=== PATIENT | male | born 1950 | race Caucasian/White ===

== ENCOUNTER → 2018-09-15 12:20 | Outpatient (CLI) | payer MEDICARE, OTHER, SELFPAY ==
--- NOTE | 2018-09-15 12:48 | DI.RAD.S_ITS ---
PROCEDURE: XR FOOT RT MIN 3V INDICATIONS: pain on outside R foot to pinky toe TECHNIQUE: 3 views of the foot were acquired. COMPARISON: None. FINDINGS: Bones: No fractures or dislocations. No suspicious bony lesions. Osteoarthritis is present moderate in severity at the first MTP joint and the interphalangeal joint of the first ray. Soft tissues: No tibiotalar joint effusion. Achilles tendon appears normal. IMPRESSION: No acute trauma found. Degenerative osteoarthritis as discussed. Incidental mode is made of a plantar fascia insertion spur that is small at the plantar fascia insertion on the posterior calcaneus. Dictated by: Bi Mcginnis M.D. on 09/15/2018 at 13:05 Approved by: Bi Mcginnis M.D. on 09/15/2018 at 13:06
== END ==
PROVIDERS: Family Provider Podiatrist; PCP Internal Medicine; Visit Provider Physician Assistant
DX: M79.671 Pain in right foot (principal); M19.071 Primary osteoarthritis, right ankle and foot; M77.31 Calcaneal spur, right foot
CPT/HCPCS: 73630

== ENCOUNTER → 2018-12-29 13:11 | Outpatient (CLI) | payer MEDICARE, OTHER, SELFPAY ==
--- NOTE | 2019-01-02 12:33 | PM.TREADMILL ---
Cardiac Stress Test Report Referral & Results Date Patient Seen: 01/02/19 Requesting provider: Michele Laura Indication: Coronary disease Rest EC% atrial and ventricular paced Procedure Note: After both written and verbal informed consent the patient had an IV started by the diagnostic imaging RN, and then was hooked up to the treadmill monitoring system. The Lexiscan material, and then the Cardiolite tracer, were administered sequentially. An additional 3 min was spent monitoring the patient while supine on the gurney. The patient had a normal response to all infused materials. Impression: Normal response as above Please see perfusion imaging report for details regarding possible ischemia Please note: Actual ECG tracings can be found in the PACS system.
--- NOTE | 2019-01-04 11:04 | DI.NM.S_ITS ---
DATE OF SERVICE: 12/29/2018 PROCEDURE: Pharmacological perfusion study. INDICATIONS: Exertional shortness of breath with history of CAD, status post drug-coated stent placement to the LAD and circumflex in 2008 as a well as again in circumflex in 2014; advanced heart block, status post dual-chamber pacemaker; history of PE. RADIOPHARMACEUTICAL: 26.0 mCi technetium-99m Myoview IV was injected at stress and 25.3 mCi technetium-99m Myoview IV was injected at rest. CARDIAC STRESS: Patient underwent IV Lexiscan perfusion study under the supervision of an attending staff using standard IV Lexiscan as per protocol. Patient remained hemodynamically stable. Baseline rhythm was AV sequential- paced rhythm. Stress EKG did not reveal any convincing new ischemic changes. There were no new significant arrhythmias. RAW DATA: There was increased subdiaphragmatic activity. GATED STUDY: Stress LV ejection fraction 57% without any obvious wall motion abnormalities. TID ratio is 1.26. It is a pharmacological perfusion study. Resting end-diastolic volume is 157 mL. Lung/heart ratio is 0.37,which is within normal limits. MYOCARDIAL PERFUSION SCAN: Stress supine and resting supine images revealed small-sized mildly decreased perfusion of inferior wall and distal inferolateral wall which got significantly improved during prone images. However, patient remained to have mildly decreased perfusion of distal inferolateral wall in prone images. There is no reversible ischemia. CONCLUSION: No obvious reversible ischemia. Stress supine and resting supine images revealed mildly decreased perfusion of inferior wall and distal inferolateral wall which got significantly improved during prone images with some persistent distal inferolateral defect. Most likely we are dealing with diaphragmatic tissue attenuation artifact. However, one cannot rule out the possibility of small nontransmural distal inferolateral infarction. Patient has history of percutaneous coronary intervention (PCI) to circumflex and left anterior descending (LAD) in the past. Overall, left ventricular (LV) function is preserved. This is a low-risk myocardial perfusion study. Niko Epps - SHIRA/jane/ doc#: [id number]/job#: [id number] dd: 01/02/2019 16:38:00 dt: 01/02/2019 17:23:00 DICTATING MD/COPIES TO: Akin Goodman MD COPIES MNE: SOFIYA
== END ==
PROVIDERS: Family Provider Podiatrist; PCP Internal Medicine; Visit Provider Internal Medicine Cardiovascular Disease
DX: I25.10 Atherosclerotic heart disease of native coronary artery without angina pectoris (principal); Z53.9 Procedure and treatment not carried out, unspecified reason
CPT/HCPCS: 78452; 93016; 93017; 93018; A9502; J2785

== ENCOUNTER → 2019-03-28 11:44 | Outpatient (CLI) | payer MEDICARE, OTHER, SELFPAY ==
--- NOTE | 2019-03-28 | DI.US.S_ITS ---
PROCEDURE: US CAROTID DOPPLER BI INDICATIONS: BILATERAL CCA STENTS TECHNIQUE: Color and pulse Doppler interrogation was performed of both carotid systems, with image documentation and velocity measurements. COMPARISON: None. FINDINGS: Stenosis calculations are based on SRU (Society of Radiologists in Ultrasound) criteria. Right side: Brachial blood pressure: 124/75 mm Hg. Common carotid artery peak systolic velocity: 101 cm/sec. Internal carotid artery peak systolic velocity: 113 cm/sec. Internal carotid artery end diastolic velocity: 17 cm/sec. External carotid artery peak systolic velocity: 158 cm/sec. ICA/CCA peak systolic ratio: 1.1. Jeong scale imaging description: Carotid stent present and moderate scattered plaque. Percent internal carotid artery stenosis: Less than 50% stenosis. Vertebral artery: Flow direction is antegrade. Left side: Brachial blood pressure: 113/77 mm Hg. Common carotid artery peak systolic velocity: 99 cm/sec. Internal carotid artery peak systolic velocity: 90 cm/sec. Internal carotid artery end diastolic velocity: 34 cm/sec. External carotid artery peak systolic velocity: Occluded. ICA/CCA peak systolic ratio: 19. Jeong scale imaging description: Carotid stent present moderate scattered plaque. Percent internal carotid artery stenosis: Less than 50%. Vertebral artery: Flow direction is antegrade. IMPRESSION: Less than 50% bilateral internal carotid artery stenosis. Dictated by: Salty Burleson RRA Interpreted: Wendie Chappell MD on 03/28/2019 at 13:20 Approved by: Wendie Chappell MD, PhD on 03/28/2019 at 14:59
== END ==
PROVIDERS: PCP Internal Medicine; Visit Provider Internal Medicine Cardiovascular Disease
DX: I65.23 Occlusion and stenosis of bilateral carotid arteries (principal); Z98.890 Other specified postprocedural states
CPT/HCPCS: 93880

== ENCOUNTER → 2023-05-24 09:04 | Outpatient (CLI) | payer MEDICARE, OTHER, SELFPAY ==
[2023-05-24 21:25] LABS: Hemoglobin A1C% w Est Avg Glu 6.3 % (4.0-6.0)
[2023-05-24 21:27] LABS: Alanine Aminotransferase 11 IU/L (<50); Albumin Globulin Ratio 1.5 (1.0-2.8); Alkaline Phosphatase 87 U/L (38-126); Aspartate Aminotransferase 21 IU/L (17-59); Bilirubin Total 0.6 mg/dL (0.2-1.3); Blood Urea Nitrogen 8 mg/dL (9-20); Calcium 9.2 mg/dL (8.4-10.2); Carbon Dioxide 27 mmol/L (22-32); Chloride 96 mmol/L (98-107); Cholesterol 125 mg/dL (140-199); Estimated Glomerular Filt Rate > 60 mL/min (>60); Globulin 2.7 g/dL (1.7-4.1); Glucose 100 mg/dL (80-110); HDL Cholesterol 56 mg/dL (40-60); HEMOLYSIS < 15 (0-50); LDL Cholesterol Calculated 50 mg/dL (<100); Potassium 4.1 mmol/L (3.4-5.1); Sodium 132 mmol/L (137-145); Total Protein 6.7 g/dL (6.3-8.2); Triglycerides 93 mg/dL (35-150)
[2023-05-24 21:43] LABS: Free T3, Triiodothyronine Free 3.33 pg/mL (2.77-5.27)
[2023-05-24 21:56] LABS: TSH w/ Reflex to FT4 0.55 uIU/mL (0.47-4.68)
== END ==
PROVIDERS: PCP Physician Assistant Medical; Visit Provider Physician Assistant Medical
DX: Z13.6 Encounter for screening for cardiovascular disorders (principal); E03.9 Hypothyroidism, unspecified; E11.9 Type 2 diabetes mellitus without complications; E78.00 Pure hypercholesterolemia, unspecified; I25.10 Atherosclerotic heart disease of native coronary artery without angina pectoris
CPT/HCPCS: 80053; 80061; 83036; 84443; 84481

== ENCOUNTER → 2023-08-11 14:29 | Outpatient (CLI) | payer MEDICARE, SELFPAY ==
--- NOTE | 2023-08-11 14:33 | DI.US.S_ITS ---
PROCEDURE: US RENAL COMPLETE INDICATIONS: Evaluate right kidney. Abnormality seen at last vagus urology. TECHNIQUE: Real-time scanning was performed of the kidneys and bladder, with image documentation. COMPARISON: Not available at the time of dictation. FINDINGS: Kidneys: Kidneys are normal in size. Right kidney measures 11.6 cm long; left kidney measures 12.1 cm long. Right renal parapelvic anechoic structures with posterior sound enhancement, no internal echogenicity nor thick muñoz most likely represent simple parapelvic cysts, measuring 6.0 x 4.9 x 3.6 centimeters and 2.0 x 1.8 x 1.8 centimeters respectively. Renal cortical echotexture is otherwise normal. No hydronephrosis or nephrolithiasis. No suspicious solid mass lesions. Bladder: Pre-void bladder volume is it 116 mL. Post-void residual is 82 mL. Pre-void images demonstrate no intraluminal masses or stones. Right ureteral jet is not seen. Left ureteral jet is visualized. (Of note, ureteral jets may not be detectable in up to 25% of cases due to insufficient differences in specific gravity between ureteral and bladder urine). Miscellaneous: No free pelvic fluid. IMPRESSION: Right parapelvic cysts. If strong clinical suspicion remains for an alternate diagnosis, than CT urogram/CT KUB may provide additional diagnostic benefit. Dictated by: Juan José Conti M.D. on 08/12/2023 at 16:02 Approved by: Juan José Conti M.D. on 08/12/2023 at 16:13
== END ==
LOC: US 14:31
PROVIDERS: PCP Physician Assistant Medical; Referring Provider Physician Assistant Medical; Visit Provider Physician Assistant Medical
DX: N18.9 Chronic kidney disease, unspecified (principal); N28.1 Cyst of kidney, acquired
CPT/HCPCS: 76770

== ENCOUNTER → 2023-11-17 10:27 | Outpatient (CLI) | payer MEDICARE, SELFPAY ==
[2023-11-17 20:29] LABS: Add Manual Diff / Slide Review NO; Basophils Absolute Auto 100 /uL (0-100); Basophils Percent Auto 0.8 % (0-2); Eosinophils Absolute Auto 300 /uL (0-450); Eosinophils Percent Auto 5.2 % (2-4); Hematocrit 39.4 % (41-53); Hemoglobin 13.4 g/dL (13.5-17.5); Lymphocytes Absolute Auto 1000 /uL (1100-4500); Lymphocytes Percent Auto 15.1 % (25-40); Mean Corpuscular HGB Conc 33.9 % (30-36); Mean Corpuscular Hemoglobin 30.6 PG (26-34); Mean Corpuscular Volume 90.3 fL (80-100); Monocytes Absolute Auto 600 /uL (0-900); Monocytes Percent Auto 9.5 % (3-14); Neutrophils Absolute Auto 4600 /uL (1500-7000); Neutrophils Percent Auto 69.4 % (50-75); Platelet Count 233 X10^3/uL (150-400); Red Blood Cell Count 4.37 X10^6/uL (4.5-5.9); Red Cell Distribution Width 13.9 % (11.6-14.8); White Blood Cell Count 6.6 X10^3/uL (4.5-11.0)
[2023-11-17 20:33] LABS: Alanine Aminotransferase 11 IU/L (<50); Albumin Globulin Ratio 1.5 (1.0-2.8); Alkaline Phosphatase 83 U/L (38-126); Aspartate Aminotransferase 19 IU/L (17-59); BUN Creatinine Ratio 10.5 (6-22); Bilirubin Total 0.7 mg/dL (0.2-1.3); Blood Urea Nitrogen 10 mg/dL (9-20); Calcium 9.2 mg/dL (8.4-10.2); Carbon Dioxide 26 mmol/L (22-32); Chloride 96 mmol/L (98-107); Estimated Glomerular Filt Rate > 60 mL/min (>60); Globulin 2.7 g/dL (1.7-4.1); Glucose 101 mg/dL (80-110); HEMOLYSIS < 15 (0-50); Potassium 4.7 mmol/L (3.4-5.1); Sodium 129 mmol/L (137-145); Total Protein 6.7 g/dL (6.3-8.2); Uric Acid 3.8 mg/dL (3.5-8.5)
[2023-11-17 20:34] LABS: Hemoglobin A1C% w Est Avg Glu 5.9 % (4.0-6.0)
[2023-11-17 20:43] LABS: Creatinine Urine Random 235.35 mg/dL
[2023-11-17 21:00] LABS: Microalbumin Urine Random 5.7 mg/dL (0-1.6)
[2023-11-17 21:03] LABS: TSH w/ Reflex to FT4 < 0.02 uIU/mL (0.47-4.68)
[2023-11-17 21:42] LABS: Free T4, Direct Thyroxine 2.39 ng/dL (0.78-2.19)
== END ==
PROVIDERS: PCP Physician Assistant Medical; Referring Provider Physician Assistant Medical; Visit Provider Physician Assistant Medical
DX: N18.9 Chronic kidney disease, unspecified (principal); E11.9 Type 2 diabetes mellitus without complications; E03.9 Hypothyroidism, unspecified; I10 Essential (primary) hypertension; H93.19 Tinnitus, unspecified ear
CPT/HCPCS: 80053; 82043; 82570; 83036; 84439; 84443; 84550; 85025

== ENCOUNTER → 2024-01-10 10:27 | Outpatient (CLI) | payer MEDICARE, SELFPAY ==
[2024-01-10 19:26] LABS: Hematocrit 39.7 % (41-53); Hemoglobin 13.5 g/dL (13.5-17.5)
[2024-01-10 19:45] LABS: BUN Creatinine Ratio 15.6 (6-22); Blood Urea Nitrogen 12 mg/dL (9-20); Carbon Dioxide 25 mmol/L (22-32); Chloride 92 mmol/L (98-107); Estimated Glomerular Filt Rate > 60 mL/min (>60); Glucose 93 mg/dL (80-110); HEMOLYSIS < 15 (0-50); Potassium 4.4 mmol/L (3.4-5.1); Sodium 124 mmol/L (137-145)
[2024-01-10 19:53] LABS: Creatinine Urine Random 138.07 mg/dL; Protein (Total) Urine Random < 5 mg/dL (0-12)
== END ==
PROVIDERS: PCP Family Medicine; Visit Provider Student in an Organized Health Care Education/Training Program
DX: D70.9 Neutropenia, unspecified (principal); N05.9 Unspecified nephritic syndrome with unspecified morphologic changes; D63.1 Anemia in chronic kidney disease; R80.9 Proteinuria, unspecified
CPT/HCPCS: 80048; 82570; 84156; 85014; 85018

== ENCOUNTER → 2024-02-21 13:55 | Outpatient (CLI) | payer MEDICARE, SELFPAY ==
[2024-02-21 19:14] LABS: Hemoglobin 13.4 g/dL (13.5-17.5)
[2024-02-21 19:22] LABS: HEMOLYSIS < 15 (0-50); Iron 85 ug/dL (49-181)
[2024-02-21 19:32] LABS: Appearance Urine UA CLEAR; Bilirubin Urine UA NEGATIVE (NEGATIVE); Color Urine UA YELLOW; Glucose Urine UA NEGATIVE (Negative); Ketones Urine UA TRACE (NEGATIVE); Leukocyte Esterase Urine UA NEGATIVE (NEGATIVE); Nitrite Urine UA NEGATIVE (Negative); Occult Blood Urine UA NEGATIVE (Negative); Protein Urine UA NEGATIVE (Negative); Specific Gravity Urine UA 1.015 (1.000-1.035); pH Urine UA 6.5 (4.5-8.0)
[2024-02-21 19:34] LABS: Percent Iron Saturation 33 % (20-50); Total Iron Binding Capacity 261 ug/dL (261-462); Transferrin 216 mg/dL (206-381)
[2024-02-21 19:39] LABS: Bacteria Urine Occasional (0-1); Culture Indicated Urine Cult Not Indicated; RBC Urine 0-1/HPF (0-5/HPF); Squamous Epithelial Cell Urine 0-1 /HPF (0-5/HPF); Urine Volume 10mL (spun); WBC Urine 0-1/HPF (0-5/HPF)
[2024-02-21 19:42] LABS: BUN Creatinine Ratio 18.1 (6-22); Blood Urea Nitrogen 17 mg/dL (9-20); Calcium 9.1 mg/dL (8.4-10.2); Carbon Dioxide 28 mmol/L (22-32); Chloride 97 mmol/L (98-107); Estimated Glomerular Filt Rate > 60 mL/min (>60); Glucose 106 mg/dL (80-110); HEMOLYSIS 15 (0-50); Potassium 4.5 mmol/L (3.4-5.1); Sodium 130 mmol/L (137-145)
[2024-02-21 20:09] LABS: Creatinine Urine Random 171.61 mg/dL; Protein (Total) Urine Random < 5 mg/dL (0-12); Protein Creatinine Ratio Urine 0.02 GRAM/24H; Sodium Urine Random 38 mmol/L (30-90)
[2024-02-21 20:13] LABS: Vitamin B12 892 pg/mL (239-931)
[2024-02-21 20:15] LABS: Ferritin 53 ng/mL (18-464)
[2024-02-23 18:36] LABS: Osmolality Urine 554 mOsmol/kg (.)
== END ==
PROVIDERS: PCP Family Medicine; Visit Provider Student in an Organized Health Care Education/Training Program
DX: E03.9 Hypothyroidism, unspecified (principal); D64.9 Anemia, unspecified; N05.9 Unspecified nephritic syndrome with unspecified morphologic changes; E87.1 Hypo-osmolality and hyponatremia; D70.9 Neutropenia, unspecified; D63.1 Anemia in chronic kidney disease; N25.81 Secondary hyperparathyroidism of renal origin; I10 Essential (primary) hypertension; R41.3 Other amnesia; R80.9 Proteinuria, unspecified; N30.00 Acute cystitis without hematuria
CPT/HCPCS: 80048; 81001; 82570; 82607; 82728; 83540; 83550; 83935; 83970; 84156; 84300; 84443; 85014; 85018

== ENCOUNTER → 2024-02-25 09:25 | Outpatient (CLI) | payer MEDICARE, SELFPAY ==
[2024-02-25 20:42] LABS: Cortisol AM (Before 10AM) 12.4 ug/dL (4.46-22.7)
== END ==
PROVIDERS: PCP Family Medicine; Referring Provider Student in an Organized Health Care Education/Training Program; Visit Provider Student in an Organized Health Care Education/Training Program
DX: N05.9 Unspecified nephritic syndrome with unspecified morphologic changes (principal); E87.1 Hypo-osmolality and hyponatremia; D70.9 Neutropenia, unspecified; D63.1 Anemia in chronic kidney disease; N25.81 Secondary hyperparathyroidism of renal origin; E03.9 Hypothyroidism, unspecified; R80.9 Proteinuria, unspecified; N30.00 Acute cystitis without hematuria
CPT/HCPCS: 82533

== ENCOUNTER → 2024-05-24 13:09 | Outpatient (CLI) | payer MEDICARE, OTHER, SELFPAY ==
[2024-05-24 19:26] LABS: Free T3, Triiodothyronine Free 3.38 pg/mL (2.77-5.27); Free T4, Direct Thyroxine 2.03 ng/dL (0.78-2.19)
[2024-05-24 19:40] LABS: Thyroid Stimulating Hormone < 0.015 uIU/mL (0.47-4.68)
[2024-05-26 07:39] LABS: Triiodothyronine T3 Total 73 ng/dL (71-180)
[2024-05-26 18:11] LABS: Anti Thyroglobulin Antibody <1.0 IU/mL (0.0-0.9); Thyroid Peroxidase Antibodies <9 IU/mL (0-34)
== END ==
PROVIDERS: PCP Family Medicine; Visit Provider Family Medicine
DX: E03.9 Hypothyroidism, unspecified (principal); N18.9 Chronic kidney disease, unspecified; I12.9 Hypertensive chronic kidney disease with stage 1 through stage 4 chronic kidney disease, or unspecified chronic kidney disease
CPT/HCPCS: 84439; 84443; 84480; 84481; 86376; 86800

== ENCOUNTER → 2024-06-14 08:28 | Outpatient (CLI) | payer MEDICARE, OTHER, SELFPAY ==
--- NOTE | 2024-06-14 08:30 | DI.US.S_ITS ---
PROCEDURE: US CAROTID DOPPLER BI INDICATIONS: CAROTID ARTERY STENOSIS TECHNIQUE: Color and pulse Doppler interrogation was performed of both carotid systems, with image documentation and velocity measurements. COMPARISON: [facility], [place], US CAROTID DOPPLER BI, 03/28/2019, 12:15. FINDINGS: Stenosis calculations are based on SRU (Society of Radiologists in Ultrasound) criteria. Right side: Brachial blood pressure: 121/69 mm Hg. Common carotid artery peak systolic velocity: 85 cm/sec. Internal carotid artery peak systolic velocity: 36 cm/sec. Internal carotid artery end diastolic velocity: 5 cm/sec. External carotid artery peak systolic velocity: 89 cm/sec. ICA/CCA peak systolic ratio: 0.4. Jeong scale imaging description: Carotid stent present. Moderate atherosclerotic plaque Percent internal carotid artery stenosis: Less than 50 %. Vertebral artery: Not well visualized. Left side: Brachial blood pressure: 124/74 mm Hg. Common carotid artery peak systolic velocity: 73 cm/sec. Internal carotid artery peak systolic velocity: 61 cm/sec. Internal carotid artery end diastolic velocity: 13 cm/sec. External carotid artery peak systolic velocity: Occluded, stable ICA/CCA peak systolic ratio: 0.8 Jeong scale imaging description: Carotid stent in moderate atherosclerotic plaque Percent internal carotid artery stenosis: Less than 50 % Vertebral artery: Flow direction is antegrade. IMPRESSION: 1. In the bilateral carotid arteries, there is less than 50 % stenosis based on peak systolic velocity criteria. 2. Antegrade left vertebral artery and right vertebral artery not well visualized. Approved by: Wally Li M.D. on 06/14/2024 at 20:14
== END ==
PROVIDERS: PCP Family Medicine; Referring Provider Internal Medicine Cardiovascular Disease; Visit Provider Internal Medicine Cardiovascular Disease
DX: I65.23 Occlusion and stenosis of bilateral carotid arteries (principal); I50.9 Heart failure, unspecified; I25.10 Atherosclerotic heart disease of native coronary artery without angina pectoris; I10 Essential (primary) hypertension; Z95.0 Presence of cardiac pacemaker
CPT/HCPCS: 93880

== ENCOUNTER → 2024-08-08 12:43 | Outpatient (CLI) | payer MEDICARE, OTHER, SELFPAY | LOC: LAB 12:44 | PROVIDERS: PCP Family Medicine; Visit Provider Physician Assistant Medical | DX: L02.01 Cutaneous abscess of face (principal) | CPT/HCPCS: 87070; 87075; 87205 ==

== ENCOUNTER → 2024-08-10 06:10 | Outpatient (CLI) | payer MEDICARE, OTHER, SELFPAY ==
--- NOTE | 2024-08-10 06:13 | DI.RAD.S_ITS ---
PROCEDURE: XR FACIAL BONES MIN 3V INDICATIONS: fell several weeks ago onto face, increasing pain L side TECHNIQUE: 4 views of the facial bones were acquired. COMPARISON: None. FINDINGS: Sinuses: Visualized sinuses demonstrate no air-fluid levels or mucosal thickening. Bones: Patient is largely edentulous with moderate maxillary and mandibular alveolar erosive changes likely related the denture wear or inflammation. Mandible is suboptimally visualized but there appears to be a non unified old fracture of the left mandibular angle Soft tissues: Bilateral carotid stents appreciated no complication IMPRESSION: Non unified fracture of the left mandibular angle which is not well profiled. Suggest dedicated mandible films Dictated by: Onur Lozano M.D. on 08/10/2024 at 11:45 Approved by: Onur Lozano M.D. on 08/10/2024 at 11:48
== END ==
PROVIDERS: PCP Family Medicine; Referring Provider Physician Assistant Medical; Visit Provider Physician Assistant Medical
DX: S02.652A Fracture of angle of left mandible, initial encounter for closed fracture (principal); L02.91 Cutaneous abscess, unspecified; W19.XXXA Unspecified fall, initial encounter; Z95.828 Presence of other vascular implants and grafts
CPT/HCPCS: 70150

== ENCOUNTER → 2024-08-16 08:56 | Outpatient (CLI) | payer MEDICARE, OTHER, SELFPAY ==
[2024-08-16 19:10] LABS: Add Manual Diff / Slide Review NO; Basophils Absolute Auto 100 /uL (0-100); Basophils Percent Auto 0.9 % (0-2); Eosinophils Absolute Auto 400 /uL (0-450); Eosinophils Percent Auto 6.1 % (2-4); Hematocrit 41.7 % (41-53); Hemoglobin 13.9 g/dL (13.5-17.5); Lymphocytes Absolute Auto 1000 /uL (1100-4500); Mean Corpuscular HGB Conc 33.3 % (30-36); Mean Corpuscular Hemoglobin 28.7 PG (26-34); Mean Corpuscular Volume 86.1 fL (80-100); Monocytes Absolute Auto 600 /uL (0-900); Monocytes Percent Auto 9.4 % (3-14); Neutrophils Absolute Auto 4600 /uL (1500-7000); Neutrophils Percent Auto 68.6 % (50-75); Platelet Count 286 X10^3/uL (150-400); Red Blood Cell Count 4.85 X10^6/uL (4.5-5.9); Red Cell Distribution Width 16.6 % (11.6-14.8); White Blood Cell Count 6.7 X10^3/uL (4.5-11.0)
[2024-08-16 19:22] LABS: Alanine Aminotransferase 12 IU/L (<50); Albumin 4.2 g/dL (3.5-5.0); Albumin Globulin Ratio 1.4 (1.0-2.8); Alkaline Phosphatase 83 U/L (38-126); Aspartate Aminotransferase 22 IU/L (17-59); Bilirubin Total 0.7 mg/dL (0.2-1.3); Blood Urea Nitrogen 19 mg/dL (9-20); Calcium 9.5 mg/dL (8.4-10.2); Carbon Dioxide 26 mmol/L (22-32); Chloride 95 mmol/L (98-107); Cholesterol 201 mg/dL (140-199); Estimated Glomerular Filt Rate > 60 mL/min (>60); Globulin 2.9 g/dL (1.7-4.1); Glucose 100 mg/dL (70-99); HDL Cholesterol 69 mg/dL (40-60); HEMOLYSIS < 15 (0-50); LDL Cholesterol Calculated 116 mg/dL (<100); Potassium 4.8 mmol/L (3.4-5.1); Sodium 131 mmol/L (137-145); Total Protein 7.1 g/dL (6.3-8.2); Triglycerides 80 mg/dL (35-150)
[2024-08-16 19:53] LABS: Prostate Specific Antigen Scrn 2.03 ng/mL (0.1-4.0)
[2024-08-16 19:56] LABS: Testosterone 612 ng/dL (71.8-623)
== END ==
PROVIDERS: PCP Family Medicine; Visit Provider Family Medicine
DX: Z12.5 Encounter for screening for malignant neoplasm of prostate (principal); D64.9 Anemia, unspecified; I10 Essential (primary) hypertension; E87.1 Hypo-osmolality and hyponatremia; E78.2 Mixed hyperlipidemia; N52.9 Male erectile dysfunction, unspecified
CPT/HCPCS: 80053; 80061; 84403; 85025; G0103

== ENCOUNTER → 2024-09-01 16:43 | Outpatient (CLI) | payer MEDICARE, OTHER, SELFPAY | LOC: LAB 16:44 | PROVIDERS: PCP Family Medicine; Visit Provider Family Medicine | DX: L02.01 Cutaneous abscess of face (principal) | CPT/HCPCS: 87070; 87075; 87205 ==

== ENCOUNTER → 2024-09-21 14:26 | Outpatient (CLI) | payer MEDICARE, OTHER, SELFPAY ==
[2024-09-21 19:42] LABS: Hematocrit 38.2 % (41-53); Hemoglobin 13.1 g/dL (13.5-17.5)
[2024-09-21 19:54] LABS: Appearance Urine UA CLEAR; Bilirubin Urine UA NEGATIVE (NEGATIVE); Color Urine UA YELLOW; Glucose Urine UA NEGATIVE (Negative); Ketones Urine UA NEGATIVE (NEGATIVE); Leukocyte Esterase Urine UA NEGATIVE (NEGATIVE); Nitrite Urine UA NEGATIVE (Negative); Occult Blood Urine UA NEGATIVE (Negative); Protein Urine UA NEGATIVE (Negative); Urobilinogen Urine UA 0.2 E.U./dL (0.2)
[2024-09-21 19:57] LABS: BUN Creatinine Ratio 16.3 (6-22); Blood Urea Nitrogen 15 mg/dL (9-20); Calcium 8.7 mg/dL (8.4-10.2); Carbon Dioxide 29 mmol/L (22-32); Chloride 91 mmol/L (98-107); Estimated Glomerular Filt Rate > 60 mL/min (>60); Glucose 99 mg/dL (70-99); HEMOLYSIS 16 (0-50); Potassium 4.6 mmol/L (3.4-5.1); Sodium 124 mmol/L (137-145)
[2024-09-21 20:01] LABS: Bacteria Urine Occasional (0-1); Culture Indicated Urine Cult Not Indicated; RBC Urine 0-1/HPF (0-5/HPF); Squamous Epithelial Cell Urine 0-1 /HPF (0-5/HPF); Urine Volume 10mL (spun); WBC Urine 0-1/HPF (0-5/HPF)
[2024-09-21 20:11] LABS: Creatinine Urine Random 96.65 mg/dL
[2024-09-21 20:12] LABS: Protein (Total) Urine Random < 5 mg/dL (0-12); Protein Creatinine Ratio Urine 0.05 GRAM/24H
[2024-09-24 10:36] LABS: Parathyroid Hormone Int 24 pg/mL (15-65)
== END ==
PROVIDERS: PCP Family Medicine; Visit Provider Student in an Organized Health Care Education/Training Program
DX: N05.9 Unspecified nephritic syndrome with unspecified morphologic changes (principal); D70.9 Neutropenia, unspecified; D63.1 Anemia in chronic kidney disease; N25.81 Secondary hyperparathyroidism of renal origin; N30.00 Acute cystitis without hematuria; R80.9 Proteinuria, unspecified
CPT/HCPCS: 80048; 81001; 82570; 83970; 84156; 85014; 85018

== ENCOUNTER → 2024-10-17 08:59 | Outpatient (CLI) | payer MEDICARE, OTHER, SELFPAY | PROVIDERS: Family Provider Family Medicine; PCP Family Medicine; Referring Provider Family Medicine; Visit Provider Surgery | DX: L59.8 Other specified disorders of the skin and subcutaneous tissue related to radiation (principal); M27.2 Inflammatory conditions of jaws; L98.492 Non-pressure chronic ulcer of skin of other sites with fat layer exposed; E11.622 Type 2 diabetes mellitus with other skin ulcer; E11.22 Type 2 diabetes mellitus with diabetic chronic kidney disease; N18.9 Chronic kidney disease, unspecified; Z86.711 Personal history of pulmonary embolism; Z85.89 Personal history of malignant neoplasm of other organs and systems; Z86.73 Personal history of transient ischemic attack (TIA), and cerebral infarction without residual deficits; I10 Essential (primary) hypertension | CPT/HCPCS: 99203; 99214 ==

== ENCOUNTER → 2024-11-07 12:47 | Outpatient (CLI) | payer MEDICARE, OTHER, SELFPAY ==
--- NOTE | 2024-11-08 16:58 | DI.NM.S_ITS ---
DATE OF SERVICE: 11/08/2024 PROCEDURE: Pharmacological perfusion study. INDICATIONS: Known history of coronary artery disease, status post LAD and circumflex stent in 2008 and again in circumflex in 2015, with advanced heart block status post permanent pacemaker. Perfusion study is being done for CAD risk stratification. RADIOPHARMACEUTICAL: 27.4 millicurie technetium-99m Myoview IV was injected at stress and 25.1 millicurie technetium-99m Myoview IV was injected at rest. CARDIAC STRESS: The patient underwent IV Lexiscan study as per standard protocol under the supervision of an attending staff. The patient remained hemodynamically stable. Blood pressure at rest 130/84. Baseline rhythm A-sensed and ventricular-paced rhythm. During stress, no new convincing ischemic changes or significant arrhythmias. No chest pain. RAW DATA: There is increased subdiaphragmatic activity. Hot spot seen near the inferior border and near the apex. GATED STUDY: Resting LV ejection fraction 58 and stress LV ejection fraction 68% without any significant wall motion abnormalities. Resting end-diastolic volume 136 mL. TID ratio 0.91, which is within normal limits. MYOCARDIAL PERFUSION SCAN: Please note this patient does not have any stress prone images. Stress supine and resting supine images were compared to each other. There is a predominantly fixed, small size, mildly decreased perfusion of inferoapex without any significant reversible ischemia. Summed stress score and summed rest score 2 with summed difference score 0. CONCLUSION: 1. No obvious reversible ischemia. 2. Small size fixed inferoapical defect in the setting of pacemaker. Summed difference score is 0. No prone images. There was a hot spot seen near the inferior border and the apex. On gated study, preserved LV function without any significant wall motion abnormalities. Hence, possibility of tissue attenuation artifact is there. However, one cannot rule out possibility of small inferoapical infarction. Overall, low-risk myocardial perfusion scan. The patient had pharmacological perfusion study in 2019. At that time also, there was tissue attenuation artifact with predominantly fixed, small size distal inferolateral defect. At that time, LV ejection fraction 57% and end- diastolic volume 157 mL. CarolNiko erickson - SHIRA/jane/OLIVIA doc#: [id number]/job#: [id number] dd: 11/08/2024 16:28:00 dt: 11/08/2024 16:39:00 DICTATING MD/COPIES TO: Akin Goodman MD COPIES MNE: SOFIYA;
== END ==
PROVIDERS: Family Provider Family Medicine; PCP Family Medicine; Referring Provider Family Medicine; Visit Provider Internal Medicine Cardiovascular Disease
DX: I25.10 Atherosclerotic heart disease of native coronary artery without angina pectoris (principal); Z95.0 Presence of cardiac pacemaker; Z95.5 Presence of coronary angioplasty implant and graft
CPT/HCPCS: 78452; 93016; 93017; 93018; A9502; J2785

== ENCOUNTER → 2024-11-28 16:02 | Outpatient (CLI) | payer MEDICARE, OTHER, SELFPAY ==
--- NOTE | 2024-11-28 16:04 | DI.RAD.S_ITS ---
PROCEDURE: XR CHEST 2V INDICATIONS: Hyperbaric Therapy Pre-Dive x-ray TECHNIQUE: 2 views of the chest were acquired. COMPARISON: None. FINDINGS: Heart, mediastinum and pulmonary vascular: Heart is mildly enlarged. Pacemaker leads in satisfactory position.. Mediastinum is unremarkable. Pulmonary vascular is normal. Lungs: Clear Pleural spaces: Normal-no effusions or pneumothorax. Bones and soft tissues: Normal IMPRESSION: Mild cardiomegaly. No acute disease Dictated by: Onur Lozano M.D. on 11/29/2024 at 11:12 Approved by: Onur Lozano M.D. on 11/29/2024 at 11:13
== END ==
PROVIDERS: PCP Family Medicine; Referring Provider Surgery; Visit Provider Surgery
DX: M27.2 Inflammatory conditions of jaws (principal); I51.7 Cardiomegaly; Z95.0 Presence of cardiac pacemaker
CPT/HCPCS: 71046

== ENCOUNTER → 2024-11-30 11:57 | Outpatient (CLI) | payer MEDICARE, OTHER, SELFPAY ==
[2024-11-30 19:28] LABS: Add Manual Diff / Slide Review NO; Hematocrit 34.4 % (41-53); Hemoglobin 12.0 g/dL (13.5-17.5); Lymphocytes Absolute Auto 1000 /uL (1100-4500); Mean Corpuscular HGB Conc 34.8 % (30-36); Mean Corpuscular Hemoglobin 29.4 PG (26-34); Mean Corpuscular Volume 84.5 fL (80-100); Platelet Count 264 X10^3/uL (150-400)
[2024-11-30 19:45] LABS: Alanine Aminotransferase 11 IU/L (<50); Albumin 3.5 g/dL (3.5-5.0); Albumin Globulin Ratio 1.3 (1.0-2.8); Alkaline Phosphatase 94 U/L (38-126); Blood Urea Nitrogen 13 mg/dL (9-20); Calcium 9.0 mg/dL (8.4-10.2); Carbon Dioxide 26 mmol/L (22-32); Chloride 100 mmol/L (98-107); Estimated Glomerular Filt Rate > 60 mL/min (>60); Globulin 2.8 g/dL (1.7-4.1); Glucose 106 mg/dL (70-99); HEMOLYSIS < 15 (0-50); Potassium 4.6 mmol/L (3.4-5.1); Sodium 132 mmol/L (137-145); Total Protein 6.3 g/dL (6.3-8.2)
[2024-11-30 20:12] LABS: Thyroid Stimulating Hormone < 0.015 uIU/mL (0.47-4.68)
== END ==
PROVIDERS: Student in an Organized Health Care Education/Training Program; PCP Family Medicine; Visit Provider Family Medicine
DX: I10 Essential (primary) hypertension (principal); E03.9 Hypothyroidism, unspecified; E87.1 Hypo-osmolality and hyponatremia; N18.2 Chronic kidney disease, stage 2 (mild)
CPT/HCPCS: 80053; 84300; 84443; 85025

== ENCOUNTER → 2024-12-18 12:59 | Outpatient (CLI) | payer MEDICARE, OTHER, SELFPAY | LOC: WC 13:00 | PROVIDERS: PCP Family Medicine; Referring Provider Family Medicine; Visit Provider Surgery | DX: M27.2 Inflammatory conditions of jaws (principal) | CPT/HCPCS: 99183; G0277 ==

== ENCOUNTER → 2024-12-19 13:12 | Outpatient (CLI) | payer MEDICARE, OTHER, SELFPAY | PROVIDERS: PCP Family Medicine; Referring Provider Family Medicine; Visit Provider Surgery | DX: M27.2 Inflammatory conditions of jaws (principal); L59.8 Other specified disorders of the skin and subcutaneous tissue related to radiation | CPT/HCPCS: 99183; G0277 ==

== ENCOUNTER → 2025-01-04 14:26 | Outpatient (CLI) | payer MEDICARE, OTHER, SELFPAY ==
[2025-01-04 19:38] LABS: Alanine Aminotransferase 13 IU/L (<50); Albumin 3.7 g/dL (3.5-5.0); Albumin Globulin Ratio 1.4 (1.0-2.8); Alkaline Phosphatase 123 U/L (38-126); Blood Urea Nitrogen 19 mg/dL (9-20); Calcium 8.9 mg/dL (8.4-10.2); Carbon Dioxide 24 mmol/L (22-32); Chloride 96 mmol/L (98-107); Estimated Glomerular Filt Rate > 60 mL/min (>60); Globulin 2.7 g/dL (1.7-4.1); Glucose 106 mg/dL (70-99); HEMOLYSIS < 15 (0-50); Potassium 4.9 mmol/L (3.4-5.1); Sodium 129 mmol/L (137-145); Total Protein 6.4 g/dL (6.3-8.2)
[2025-01-04 19:40] LABS: Add Manual Diff / Slide Review NO; Hematocrit 36.2 % (41-53); Hemoglobin 12.2 g/dL (13.5-17.5); Lymphocytes Absolute Auto 1300 /uL (1100-4500); Mean Corpuscular HGB Conc 33.8 % (30-36); Mean Corpuscular Hemoglobin 28.8 PG (26-34); Mean Corpuscular Volume 85.2 fL (80-100); Platelet Count 270 X10^3/uL (150-400)
[2025-01-04 20:14] LABS: Thyroid Stimulating Hormone < 0.015 uIU/mL (0.47-4.68)
[2025-01-04 20:15] LABS: Ferritin 108 ng/mL (18-464)
[2025-01-04 20:23] LABS: Microalbumi Creatinin Ratio Ur 16.0 ug/mg CR (<30)
== END ==
PROVIDERS: Student in an Organized Health Care Education/Training Program; PCP Family Medicine; Visit Provider Family Medicine
DX: E11.59 Type 2 diabetes mellitus with other circulatory complications (principal); E03.9 Hypothyroidism, unspecified; I25.10 Atherosclerotic heart disease of native coronary artery without angina pectoris; E87.1 Hypo-osmolality and hyponatremia; I10 Essential (primary) hypertension; N18.2 Chronic kidney disease, stage 2 (mild)
CPT/HCPCS: 80053; 82043; 82570; 82728; 84300; 84443; 85025

== ENCOUNTER → 2025-01-15 13:10 | Outpatient (CLI) | payer MEDICARE, OTHER, SELFPAY | LOC: WC 13:11 | PROVIDERS: PCP Family Medicine; Referring Provider Family Medicine; Visit Provider Surgery | DX: M27.2 Inflammatory conditions of jaws (principal); L59.8 Other specified disorders of the skin and subcutaneous tissue related to radiation | CPT/HCPCS: 99183; G0277 ==

== ENCOUNTER → 2025-01-16 16:36 | Outpatient (CLI) | payer MEDICARE, OTHER, SELFPAY | LOC: WC 16:42 | PROVIDERS: PCP Family Medicine; Referring Provider Family Medicine; Visit Provider Surgery | DX: M27.2 Inflammatory conditions of jaws (principal); L59.8 Other specified disorders of the skin and subcutaneous tissue related to radiation | CPT/HCPCS: 99183; G0277 ==

== ENCOUNTER → 2025-01-17 14:38 | Outpatient (CLI) | payer MEDICARE, OTHER, SELFPAY | LOC: WC 14:39 | PROVIDERS: PCP Family Medicine; Referring Provider Family Medicine; Visit Provider Surgery | DX: M27.2 Inflammatory conditions of jaws (principal); L59.8 Other specified disorders of the skin and subcutaneous tissue related to radiation | CPT/HCPCS: 99183; G0277 ==

== ENCOUNTER → 2025-01-18 12:30 | Outpatient (CLI) | payer MEDICARE, OTHER, SELFPAY | LOC: WC 01-22 09:01 | PROVIDERS: PCP Family Medicine; Referring Provider Family Medicine; Visit Provider Surgery | DX: M27.2 Inflammatory conditions of jaws (principal); L59.8 Other specified disorders of the skin and subcutaneous tissue related to radiation | CPT/HCPCS: 99183; G0277 ==

== ENCOUNTER → 2025-01-24 10:44 | Outpatient (CLI) | payer MEDICARE, OTHER, SELFPAY ==
--- NOTE | 2025-01-24 10:48 | DI.ECHO.S_ITS ---
[facility]+ [facility] : : [address] : : [place] : : [id number] : : Phone: [phone] Echocardiogram Report + + :Name: CHANTAL KNIGHT Study Date: 01/24/2025 Height: 72 in : :[facility] ReadingLocation: Weight: 196 lb : : Gender: Male BSA: 2.1 m2 : :: 1950 Age: 74 yrs BP: 124/82 mmHg: :Reason For Study: CARDIOMYOPATHY : :Ordering Physician: BETTY, : :FREDI Westbrook Performed By: Anne Wing : :Referring: FREDI LADD : + + Interpretation Summary Sinus rhythm with ventricular pacing. The ejection fraction is estimated to be 45-50%. There is a moderate dyssynchronous contraction pattern due to the paced rhythm. The distal lateral wall is hypokinetic. Diastolic function is indeterminate. The left atrium is severely dilated. The right ventricle is mildly dilated. The right ventricular systolic function is normal. There is mild mitral regurgitation. There is mild aortic regurgitation. There is mild tricuspid regurgitation. Right ventricular systolic pressure is estimated to be 24 mmHg plus the clinically estimated CVP which cannot be estimated on this exam. The ascending aorta is mildly enlarged. Procedure: A two-dimensional transthoracic echocardiogram with color flow and Doppler was performed. The study quality was technically adequate. Sinus rhythm with ventricular pacing. Left Ventricle: The left ventricle is normal in size and wall thickness. The ejection fraction is estimated to be 45-50%. There is a moderate dyssynchronous contraction pattern due to the paced rhythm. The distal lateral wall is hypokinetic. Diastolic function is indeterminate. Right Ventricle: The right ventricle is mildly dilated. There is a pacemaker lead in the right ventricle. The right ventricular systolic function is normal. Atria: The left atrium is severely dilated. Right atrial size is normal. There is a catheter/pacemaker lead seen in the right atrium. There is no Doppler evidence for an interatrial shunt. Mitral Valve: There is mild mitral annular calcification. The mitral valve leaflets appear moderately thickened. There is borderline mitral valve prolapse. There is mild mitral regurgitation. Aortic Valve: The aortic valve is trileaflet. The aortic valve opens well. There is no aortic valve stenosis. There is mild aortic regurgitation. Tricuspid Valve: Tricuspid leaflets are thickened. There is mild tricuspid regurgitation. Right ventricular systolic pressure is estimated to be 24 mmHg plus the clinically estimated CVP which cannot be estimated on this exam. Pulmonic Valve: The pulmonic valve leaflets are thin and pliable; valve motion is normal. There is mild pulmonic regurgitation. Great Vessels: The aortic root is normal size. The ascending aorta is mildly enlarged. The inferior vena cava was not well visualized. Pericardium/ Pleura There is no pericardial effusion. There is no pleural effusion. MMode/2D Measurements & Calculations LVIDd: 4.8 cm LVOT diam: 2.5 cm LVIDs: 3.1 cm Ao root diam: 3.5 cm FS: 34.8 % asc Aorta Diam: 3.9 cm IVSd: 1.1 cm Ao Arch Diam (Prox Trans): 3.3 cm LVPWd: 0.83 cm LV lucero. diameter/BSA (cm/m^2): 2.3 LV sys. diameter/BSA (cm/m^2): 1.5 LA A2 area: 29.2 cm2 RA long axis: 5.6 cm LA A4 area: 30.7 cm2 RA area: 17.8 cm2 LA length (vol): 6.5 cm RA vol: 47.7 ml LA vol: 116.8 ml RA : 22.6 ml/m2 LA vol index: 55.3 ml/m2 RVD1 (basal): 4.3 cm TAPSE: 2.1 cm Doppler Measurements & Calculations Ao V2 max: 95.2 cm/sec LVOT Max Selvin: 78.3 cm/sec Ao V2 mean: 66.5 cm/sec LV V1 max P.5 mmHg Ao max P.6 mmHg LV V1 VTI: 16.2 cm Ao mean P.0 mmHg AMANDA(I,D): 4.2 cm2 Ao V2 VTI: 19.4 cm AMANDA(V,D): 4.1 cm2 sev ratio: 0.84 AMANDA indexed to BSA (cm^2/m^2): 2.0 AI P1/2t: 1013 msec AI dec slope: 119.1 cm/sec2 MV E max selvin: 52.9 cm/sec TR max selvin: 243.8 cm/sec MV A max selvin: 24.9 cm/sec TR max P.8 mmHg MV E/A: 2.1 PA V2 max: 97.4 cm/sec Med Peak E' Selvin: 5.3 cm/sec PA V2 mean: 62.9 cm/sec E/E' med: 10.0 PA mean P.8 mmHg Lat Peak E' Selvin: 7.7 cm/sec PA pr(Accel): 39.6 mmHg E/E' lat: 6.8 E/e' average: 8.4 MV dec time: 0.27 sec SV(OT): 81.3 ml Reading Physician:04:18 PM
== END ==
PROVIDERS: PCP Family Medicine; Referring Provider Internal Medicine Cardiovascular Disease; Visit Provider Internal Medicine Cardiovascular Disease
DX: I08.3 Combined rheumatic disorders of mitral, aortic and tricuspid valves (principal); I25.5 Ischemic cardiomyopathy; I77.89 Other specified disorders of arteries and arterioles
CPT/HCPCS: 93306

== ENCOUNTER → 2025-01-25 15:53 | Outpatient (CLI) | payer MEDICARE, OTHER, SELFPAY | LOC: WC 15:55 | PROVIDERS: PCP Family Medicine; Referring Provider Family Medicine; Visit Provider Surgery | DX: M27.2 Inflammatory conditions of jaws (principal); L59.8 Other specified disorders of the skin and subcutaneous tissue related to radiation | CPT/HCPCS: 99183; G0277 ==

== ENCOUNTER → 2025-01-26 15:31 | Outpatient (CLI) | payer MEDICARE, OTHER, SELFPAY | LOC: WC 15:32 | PROVIDERS: PCP Family Medicine; Referring Provider Family Medicine; Visit Provider Physician Assistant | DX: M27.2 Inflammatory conditions of jaws (principal); L59.8 Other specified disorders of the skin and subcutaneous tissue related to radiation | CPT/HCPCS: 99183; G0277 ==

== ENCOUNTER → 2025-01-30 16:00 | Outpatient (CLI) | payer MEDICARE, OTHER, SELFPAY | LOC: WC 16:00 | PROVIDERS: PCP Family Medicine; Referring Provider Family Medicine; Visit Provider Surgery | DX: M27.2 Inflammatory conditions of jaws (principal); L59.8 Other specified disorders of the skin and subcutaneous tissue related to radiation | CPT/HCPCS: 99183; G0277 ==

== ENCOUNTER → 2025-01-31 16:02 | Outpatient (CLI) | payer MEDICARE, OTHER, SELFPAY | LOC: WC 16:03 | PROVIDERS: PCP Family Medicine; Referring Provider Family Medicine; Visit Provider Surgery | DX: M27.2 Inflammatory conditions of jaws (principal); L59.8 Other specified disorders of the skin and subcutaneous tissue related to radiation | CPT/HCPCS: 99183; G0277 ==

== ENCOUNTER → 2025-04-25 10:23 | Outpatient (CLI) | payer MEDICARE, OTHER, SELFPAY ==
[2025-04-25 16:26] LABS: Add Manual Diff / Slide Review NO; Hematocrit 38.2 % (41-53); Hemoglobin 13.1 g/dL (13.5-17.5); Lymphocytes Absolute Auto 1100 /uL (1100-4500); Mean Corpuscular HGB Conc 34.3 % (30-36); Mean Corpuscular Hemoglobin 30.2 PG (26-34); Mean Corpuscular Volume 88.1 fL (80-100); Platelet Count 198 X10^3/uL (150-400)
[2025-04-25 16:27] LABS: Cholesterol 117 mg/dL (140-199); HDL Cholesterol 80 mg/dL (40-60); Triglycerides 106 mg/dL (35-150)
[2025-04-25 16:29] LABS: Blood Urea Nitrogen 13 mg/dL (9-20); Calcium 9.2 mg/dL (8.4-10.2); Carbon Dioxide 25 mmol/L (22-32); Chloride 97 mmol/L (98-107); Estimated Glomerular Filt Rate > 60 mL/min (>60); Glucose 101 mg/dL (70-99); HEMOLYSIS 18 (0-50); Potassium 4.3 mmol/L (3.4-5.1); Sodium 132 mmol/L (137-145)
[2025-04-25 16:53] LABS: Hemoglobin A1C% w Est Avg Glu 5.9 % (4.0-6.0)
[2025-04-25 18:58] LABS: TSH w/ Reflex to FT4 0.33 uIU/mL (0.47-4.68)
[2025-04-25 20:15] LABS: Free T4, Direct Thyroxine 1.92 ng/dL (0.78-2.19)
== END ==
PROVIDERS: Family Medicine; PCP Family Medicine; Visit Provider Family Medicine
DX: E03.9 Hypothyroidism, unspecified (principal); E78.2 Mixed hyperlipidemia; E11.9 Type 2 diabetes mellitus without complications; D64.9 Anemia, unspecified; I48.0 Paroxysmal atrial fibrillation; I50.9 Heart failure, unspecified; I25.10 Atherosclerotic heart disease of native coronary artery without angina pectoris; E11.59 Type 2 diabetes mellitus with other circulatory complications; E87.1 Hypo-osmolality and hyponatremia
CPT/HCPCS: 80048; 80061; 83036; 84439; 84443; 85025